=== PATIENT | female | born 1940 | race American Indian/Alaskan Native ===

== ENCOUNTER 2016-06-03 23:34 | Inpatient (IN) | payer MEDICARE, MEDICAID ==
--- NOTE | 2016-06-04 00:02 | Emergency Department Report ---
Chief Complaint: Vaginal Bleeding Stated Complaint: VAGINAL BLEEDING, LOWER ABDOMINAL PAIN Time Seen by Provider: 06/03/16 23:58 - HPI History of Present Illness: Patient states she started to have vaginal bleeding when she went to urinate 3 hours ago and an hour later started to have lower abdominal pain and lower back pain; denies fevers, recent injuries, N/V/D, dysuria, and hematuria - ROS Review of Systems: Negative except for those stated in HPI - Exam Vital Signs: Vital Signs 06/03/16 23:49 Temperature 98.6 F Pulse Rate 80 Respiratory 18 Rate Blood Pressure 145/77 O2 Sat by Pulse 99 Oximetry Physical Exam: Abdomen - soft, nondistended, TTP over lower abdomen MSE screening note: Focused history and physical exam performed. Due to findings the following was ordered: Labs, ua, patient to be seen in Main ED ED Disposition for MSE Condition: Stable
[2016-06-04 01:05] LABS: Bacteria,Urine 4+ /HPF (Negative); Bilirubin,Urine NEG (Negative); Blood,Urine LG (Negative); Ketones,Urine NEG (Negative); Leukocyte Esterase,Urine LG (Negative); Mucus,Urine 2+ /HPF; Nitrite,Urine NEG (Negative); Urobilinogen,Urine < 2.0 mg/dL (<2.0)
[2016-06-04 01:07] LABS: Basophils % (Auto) 0.4 % (0.0-1.8); Eosinophils % (Auto) 3.6 % (0.0-4.3); Hematocrit 35.1 % (30.3-42.9); Hemoglobin 11.6 gm/dl (10.1-14.3); Mean Corpuscular HGB Conc 33 % (30-34); Mean Corpuscular Hemoglobin 29 pg (28-32); Mean Corpuscular Volume 87 fl (79-97); Platelet Count 255 K/mm3 (140-440); Red Blood Count 4.06 M/mm3 (3.65-5.03); Red Cell Distribution Width 14.1 % (13.2-15.2); White Blood Count 7.3 K/mm3 (4.5-11.0)
[2016-06-04 01:09] LABS: Chloride 98.3 mmol/L (98-107); Potassium 4.1 mmol/L (3.6-5.0)
[2016-06-04 01:12] LABS: WBC,Urine > 182.0 /HPF (0.0-6.0)
[2016-06-04] MEDS ORDERED: TYLENOL PO ONE (06:57)
[2016-06-04] MEDS ORDERED: LEVAQUIN 750MG/150ML 150 ML IV ONE (10:46)
[2016-06-04] MEDS ORDERED: SUBLIMAZE IV ONE (10:46)
[2016-06-04] MEDS ORDERED: REGLAN IV ONE (10:46)
--- NOTE | 2016-06-04 10:57 | Emergency Department Report ---
HPI - General Chief Complaint: Vaginal Bleeding Time Seen by Provider: 06/04/16 10:36 - HPI HPI: Room 8 The patient is a 76-year-old female presenting with chief complaint of lower abdominal pain. Says she's had lower abdominal pain a little over 1 month. The patient states she saw her primary physician (Dr. Tang) [facility] for a CAT scan (04/24/2016). The patient states Dr. Tang wanted her to follow -up with an SHERIFF DEPUTY. Her primary physician started her on a seven-day course of antibiotics for UTI. The patient comes the emergency department today because her pain has worsened and she thought she noticed vaginal bleeding or hematuria. Patient also complains of pain in the middle and right back. Patient admits to nausea and vomiting. Patient denies fever or dysuria. The patient currently gives her pain a score of 8/10 Location: Lower abdomen Duration: Over 1 month Quality: Pain Severity: 8/10 Modifying factors: [see above] Context: [see above] Mode of transportation: [not driving] ED Past Medical Hx - Past Medical History Previous Medical History?: Yes Hx Hypertension: Yes Hx Congestive Heart Failure: Yes Hx Kidney Stones: Yes Additional medical history: poor historian, no meds brought with patient. had a angiogram done here - Surgical History Past Surgical History?: Yes Hx Appendectomy: Yes Additional Surgical History: x 1, tonsillectomy, cyst from ovary removed. Knee replacement - Family History Family history: no significant - Social History Smoking Status: Never Smoker Substance Use Type: None, Alcohol (occasional) - Medications Home Medications: Home Medications Medication Instructions Recorded Confirmed Last Taken Type Aspirin [Aspirin BABY CHEW TAB] 81 mg PO QDAY 06/04/16 06/04/16 Unknown History Benzonatate [Tessalon Perles] 100 mg PO Q8HR 06/04/16 06/04/16 Unknown History Erythromycin Base [Erythromycin] 500 mg PO BID 06/04/16 06/04/16 Unknown History Ibuprofen [Motrin] 600 mg PO Q8H PRN 06/04/16 06/04/16 Unknown History Perindopril Arg/Amlodipine Bes 1 each PO DAILY 06/04/16 06/04/16 Unknown History [Prestalia 14 mg-10 mg Tablet] Trazodone HCl [traZODone] 150 mg PO QHS 06/04/16 06/04/16 Unknown History ED Review of Systems ROS: Stated complaint: VAGINAL BLEEDING, LOWER ABDOMINAL PAIN Other details as noted in HPI Comment: All other systems reviewed and negative Constitutional: denies: chills, fever Eyes: denies: eye pain, eye discharge, vision change ENT: denies: ear pain, throat pain Respiratory: denies: cough, shortness of breath, wheezing Cardiovascular: denies: chest pain, palpitations Endocrine: no symptoms reported Gastrointestinal: abdominal pain, nausea, vomiting, diarrhea Genitourinary: abnormal menses Musculoskeletal: denies: back pain, joint swelling, arthralgia Skin: denies: rash, lesions Neurological: denies: headache, weakness, paresthesias Psychiatric: denies: anxiety, depression Hematological/Lymphatic: denies: easy bleeding, easy bruising Physical Exam - Physical Exam Vital Signs: Vital Signs 06/03/16 06/04/16 06/04/16 23:49 04:13 09:37 Temperature 98.6 F 97.7 F Pulse Rate 80 78 Respiratory 18 20 Rate Blood Pressure 145/77 175/88 Blood Pressure 174/91 [Right] O2 Sat by Pulse 99 99 Oximetry 06/04/16 10:00 Temperature 97.5 F L Pulse Rate 75 Respiratory 13 Rate Blood Pressure 159/83 Blood Pressure [Right] O2 Sat by Pulse 98 Oximetry Physical Exam: GENERAL: The patient is well-developed well-nourished female lying on stretcher appearing to be in moderate discomfort. [] HEENT: Normocephalic. Atraumatic. Extraocular motions are intact. Patient has moist mucous membranes. NECK: Supple. Trachea midline CHEST/LUNGS: Clear to auscultation. There is no respiratory distress noted. HEART/CARDIOVASCULAR: Regular. There is no tachycardia. There is no gallop rub or murmur. ABDOMEN: Abdomen is soft, with tenderness to palpation in the lower abdomen. There is no rebound or guarding. Patient has normal bowel sounds. There is no abdominal distention. SKIN: There is no rash. There is no edema. There is no diaphoresis. NEURO: The patient is awake, alert, and oriented. The patient is cooperative. The patient has normal speech MUSCULOSKELETAL: There is no evidence of acute injury. There is right CVA tenderness ED Course Vital Signs 06/03/16 06/04/16 06/04/16 23:49 04:13 09:37 Temperature 98.6 F 97.7 F Pulse Rate 80 78 Respiratory 18 20 Rate Blood Pressure 145/77 175/88 Blood Pressure 174/91 [Right] O2 Sat by Pulse 99 99 Oximetry 06/04/16 10:00 Temperature 97.5 F L Pulse Rate 75 Respiratory 13 Rate Blood Pressure 159/83 Blood Pressure [Right] O2 Sat by Pulse 98 Oximetry - Consultations Consultation #1: 06/04/16 11:01 SHERIFF DEPUTY paged- case discussed with Dr. Luque. Recommends pelvic ultrasound and he will see in consult 06/04/16 11:06 ED Medical Decision Making - Lab Data Result diagrams: 06/04/16 00:24 06/04/16 00:24 Laboratory Tests 06/04/16 06/04/16 06/04/16 00:24 00:24 00:24 WBC 7.3 RBC 4.06 Hgb 11.6 Hct 35.1 MCV 87 MCH 29 MCHC 33 RDW 14.1 Plt Count 255 Lymph % (Auto) 35.5 H [place] % (Auto) 12.3 H Eos % (Auto) 3.6 Baso % (Auto) 0.4 Lymph # 2.6 [place] # 0.9 H Eos # 0.3 Baso # 0.0 Seg Neutrophils % 48.2 Seg Neutrophils # 3.5 Sodium 143 Potassium 4.1 Chloride 98.3 Carbon Dioxide 31 H Anion Gap 18 BUN 13 Creatinine 1.3 H Estimated GFR 48 BUN/Creatinine Ratio 10.00 Glucose 104 H Calcium 9.0 Urine Color Urine Turbidity Urine pH Ur Specific [place] Urine Protein Urine Glucose (UA) Urine Ketones Urine Blood Urine Nitrite Urine Bilirubin Urine Urobilinogen Ur Leukocyte Esterase Urine WBC (Auto) Urine RBC (Auto) Urine Bacteria (Auto) Urine Mucus Blood Type O POSITIVE Antibody Screen Negative 06/04/16 Unknown WBC RBC Hgb Hct MCV MCH MCHC RDW Plt Count Lymph % (Auto) [place] % (Auto) Eos % (Auto) Baso % (Auto) Lymph # [place] # Eos # Baso # Seg Neutrophils % Seg Neutrophils # Sodium Potassium Chloride Carbon Dioxide Anion Gap BUN Creatinine Estimated GFR BUN/Creatinine Ratio Glucose Calcium Urine Color Red Urine Turbidity Turbid Urine pH 6.0 Ur Specific [place] 1.015 Urine Protein 100 mg/dl Urine Glucose (UA) Neg Urine Ketones Neg Urine Blood Lg Urine Nitrite Neg Urine Bilirubin Neg Urine Urobilinogen < 2.0 Ur Leukocyte Esterase Lg Urine WBC (Auto) > 182.0 H Urine RBC (Auto) 170.0 Urine Bacteria (Auto) 4+ Urine Mucus 2+ Blood Type Antibody Screen - Radiology Data Radiology results: report reviewed (CT abdomen and pelvis report from 04/24/2016 ) CT abdomen and pelvis from 04/24/2016-large uterine mass involving the lower uterine segment and cervical region. A neoplastic process cannot be excluded. - Differential Diagnosis uterine cancer, pyelonephritis, Critical care attestation.: If time is entered above; I have spent that time in minutes in the direct care of this critically ill patient, excluding procedure time. ED Disposition Clinical Impression: Pyelonephritis, Failure of outpatient treatment, Uterine mass Disposition: OP ADMITTED IP TO THIS HOSP Is pt being admited?: Yes Does the pt Need Aspirin: No Condition: Fair Referrals: TWYLA TANG MD [Primary Care Provider] - 3-5 Days Time of Disposition: 12:14 (hospitalist notified)
--- NOTE | 2016-06-04 11:59 | Admit Criteria Form ---
Admission Criteria Documentation: PYELONEPHRITIS, ACUTE Clinical Indications for Admission to Inpatient Care (Place 'X' for any and all applicable criteria): Admission is indicated for ANY ONE of the following 1,2,3,4,5 [X]I. Outpatient treatment has failed or is not feasible (eg, multidrug- resistant organism).5 [ ]II. beyond 24 weeks' gestation6 [ ]III. Hemodynamic instability [ ]IV. Immunocompromised state (eg, AIDS, diabetes, sickle cell disease) [X]V. Known renal or urologic abnormalities (eg, indwelling catheter, structural abnormalities, renal calculi, urinary stent, previous urologic surgery) [ ]. Condition that requires drainage procedure, including ANY ONE of the following: [ ]a) Urinary obstruction [ ]b) Pyelitis [ ]c) Pyonephrosis [ ]d) Renal or perinephric abscess [ ]e) Emphysematous pyelonephritis 7 [X]VII. Inpatient admission required rather than observation care (Also use Pyelonephritis, Acute: Observation Care Criteria as appropriate) because of ANY ONE of the following: [ ]a) High fever or infection requiring inpatient admission as indicated by ANY ONE of [id number] [ ]A. Documented bacteremia [ ]B. Temp>104.9 [id number] (oral) [ ]C. Temp>103.10F (oral) or <96.80F (rectal) that does not respond to all emergency treatment [X]b) Acute renal failure [X]c) Other significant finding or clinical condition judged not to be within the scope of observation care [ ]d) IV fluid to replace significant ongoing (eg, for over 24hrs) losses (> 3 L/m2 per day) [X]e) Other condition,treatment or monitoring requiring inpatient admission The original [facility] [employer] content created by [employer] has been revised. The portions of the content which have been revised are identified through the use of italic text or in bold, and [facility] has neither reviewed nor approved the modified material. All other unmodified content is copyright [email or web address]. Please see references footnoted in the original [facility] [employer] edition 2016 Admission Criteria Met: Yes
--- NOTE | 2016-06-04 14:09 | Ultrasound Report ---
Pelvic and transvaginal sonography: History: Lower abdominal pain, uterine mass. Findings: Uterus measures 16.5 x 6 x 7.6 cm. There is echogenic focus measuring 1.4 x 0.4 x 1 cm in diameter noted at the region of the endometrium probably a polyp. Endometrial thickness 21 mm. No fluid in the endometrium. Echogenic fluid within the cervix may represent fluid with debris or hemorrhagic fluid. Impression: Suspected polyp within the fundus of the uterus. Fluid/hemorrhage in the cervix. Right and left ovary not visualized. No mass of the adnexa.
[2016-06-04] MEDS ORDERED: ZOFRAN IV PRN (15:15)
[2016-06-04] MEDS ORDERED: TYLENOL PO PRN (15:15)
--- NOTE | 2016-06-04 15:22 | History and Physical Report ---
History of Present Illness Date of examination: 06/04/16 Date of admission: 06/04/16 12:47 Chief complaint: Abd. pains History of present illness: Patient is a 76-year-old woman with history of hypertension, CHF and kidney stones who presents with chronic progressive severe crampy nonradiating lower abdominal pains for over a month without any aggravating or relieving factors. She saw primary care provider Dr. Jesus Dumont, who ordered a CT of abdomen and pelvis on 04/24/2016 (report is in the chart) which showed a large uterine mass. She was scheduled to see INTERNAL MEDICINE NURSE this week. She has been treated for UTI on her urinalysis is still showing evidence of infection. She became concerned today due to copious amounts of vaginal bleeding over a cup full of this morning. The blood was bright red with clots; therefore, they decided come to emergency department at [facility] daughter Sharmaine is at bedside. Patient does have nausea without any intractable vomiting. She denies any chest pain, shortness breath, dysuria. Past History Past Medical History: other (as hpi) Past Surgical History: , total knee replacement (right), tonsillectomy , Other (right ovary cyst removed) Social history: full code. denies: smoking, alcohol abuse, prescription drug abuse, IV drug use Family history: no significant family history Medications and Allergies Allergies Allergy/AdvReac Type Severity Reaction Status Date / Time Penicillins Allergy Unknown Verified 02/20/13 09:57 Sulfa (Sulfonamide Allergy Unknown Verified 02/20/13 09:57 Antibiotics) Home Medications Medication Instructions Recorded Confirmed Last Taken Type Aspirin [Aspirin BABY CHEW TAB] 81 mg PO QDAY 06/04/16 06/04/16 Unknown History Benzonatate [Tessalon Perles] 100 mg PO Q8HR 06/04/16 06/04/16 Unknown History Erythromycin Base [Erythromycin] 500 mg PO BID 06/04/16 06/04/16 Unknown History Ibuprofen [Motrin] 600 mg PO Q8H PRN 06/04/16 06/04/16 Unknown History Perindopril Arg/Amlodipine Bes 1 each PO DAILY 06/04/16 06/04/16 Unknown History [Prestalia 14 mg-10 mg Tablet] Trazodone HCl [traZODone] 150 mg PO QHS 06/04/16 06/04/16 Unknown History Active Meds: Active Medications Acetaminophen (Tylenol) 650 mg PO Q6H PRN PRN Reason: Non Cardiac Pain or Temp>100.5 Levofloxacin/Dextrose (Levaquin 500mg/100ml) 100 mls @ 100 mls/hr IV Q24HR HORTENCIA PRN Reason: Protocol Sodium Chloride (Nacl 0.45% 1000 Ml) 1,000 mls @ 100 mls/hr IV DIRECT HORTENCIA Ondansetron HCl (Zofran) 4 mg IV Q4H PRN PRN Reason: Nausea And Vomiting Pantoprazole Sodium (Protonix) 40 mg PO QDAY HORTENCIA Review of Systems All systems: negative (as HPI and all other ROS reviewed and negative.) Exam - Physical Exam Narrative exam: GEN: WDWN, NAD, AWAKE, ALERT, ORIENTATED HEENT: NCAT, PERRL, EOMI, OP CLEAR NECK: SUPPLE, NO THYROMEGALY, NO JVD, NO LAD CVS: RRR, NORMAL S1S2 LUNGS/CHEST: CTA B, NORMAL CHEST EXPANSION B, GOOD AIR ENTRY B ABD: SOFT, NONDISTENDED, DIFFUSE TENDERNESS, GBS, NO REBOUND OR GUARDING EXT/SKIN: NO SIGNIFICANT EDEMA OR RASH MSK: FROM X 4 EXTREMITIES NEURO: CN 2-12 GROSSLY INTACT, NO FOCAL DEFICITS PSY: CALM - Constitutional Vitals: Temp Pulse Resp BP Pulse Ox 98.3 F 80 18 170/80 98 06/04/16 14:28 06/04/16 14:28 06/04/16 14:28 06/04/16 14:28 06/04/16 14:28 Results - Labs CBC & Chem 7: 06/04/16 00:24 06/04/16 00:24 Labs: Abnormal lab results 06/04/16 Range/Units Unknown Urine WBC (Auto) > 182.0 H (0.0-6.0) /HPF - Imaging and Cardiology Venous US: other (transvaginal ultrasound) Assessment and Plan Patient is a 76-year-old woman with history of hypertension, CHF and kidney stones who presents with chronic progressive severe crampy nonradiating lower abdominal pains for over a month without any aggravating or relieving factors. She saw primary care provider Dr. Jesus Dumont, who ordered a CT of abdomen and pelvis on 04/24/2016 (report is in the chart) which showed a large uterine mass. She was scheduled to see INTERNAL MEDICINE NURSE this week. She has been treated for UTI on her urinalysis is still showing evidence of infection. She became concerned today due to copious amounts of vaginal bleeding over a cup full of this morning. The blood was bright red with clots; therefore, they decided come to emergency department at [facility] daughter Sharmaine is at bedside. Patient does have nausea without any intractable vomiting. She denies any chest pain, shortness breath, dysuria. 1. Uterine mass with abnormal vaginal bleeding: INTERNAL MEDICINE NURSE to follow and manage 2. Acute kidney injury, vasomotor nephropathy: Treat with IV fluids, repeat BMP a.m. 3. Accelerated hypertension: Restart home meds 4. UTI: Urine culture and treat with IV Levaquin because of allergic to penicillin 5. DVT prophylaxis: SCDs only due to the bleeding Full code Disposition: Inpatient care
--- NOTE | 2016-06-04 16:29 | Consultation ---
History of Present Illness Consult date: 06/04/16 Requesting physician: MUMTAZ LALA Reason for consult: other (Postmenopausal bleeding) History of present illness: Patient is a 76-year-old BF LMP 30 years ago spontaneously, with a history of hypertension, CHF and kidney stones who presented to [facility] ER with chronic progressive severe crampy non-radiating lower abdominal pains for over a month without any aggravating or relieving factors. She saw her primary care provider Dr. Jesus Dumont, who ordered a CT of abdomen and pelvis on 04/24/2016 ( report is in the chart) which showed a large uterine mass. She was scheduled to see an INSIDE SALES ACCOUNT MANAGER . She has been treated for UTI, but her urinalysis is still showing evidence of infection. She became concerned today due to copious amounts of vaginal bleeding over a cup full of this morning. The blood was bright red with clots; therefore, they decided come to emergency department at [facility], daughter Sharmaine is at her bedside. Patient does have nausea without any intractable vomiting. She denies any chest pain, shortness breath, dysuria. Her last Pap was done over 10 years ago. 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 (Right ovarian cystectomy), tonsillectomy, section, other (Total right knee replacement) Social history: no significant social history, Medications and Allergies Allergies Allergy/AdvReac Type Severity Reaction Status Date / Time Penicillins Allergy Unknown Verified 02/20/13 09:57 Sulfa (Sulfonamide Allergy Unknown Verified 02/20/13 09:57 Antibiotics) Home Medications Medication Instructions Recorded Confirmed Last Taken Type Aspirin [Aspirin BABY CHEW TAB] 81 mg PO QDAY 06/04/16 06/04/16 Unknown History Benzonatate [Tessalon Perles] 100 mg PO Q8HR 06/04/16 06/04/16 Unknown History Erythromycin Base [Erythromycin] 500 mg PO BID 06/04/16 06/04/16 Unknown History Ibuprofen [Motrin] 600 mg PO Q8H PRN 06/04/16 06/04/16 Unknown History Perindopril Arg/Amlodipine Bes 1 each PO DAILY 06/04/16 06/04/16 Unknown History [Prestalia 14 mg-10 mg Tablet] Trazodone HCl [traZODone] 150 mg PO QHS 06/04/16 06/04/16 Unknown History Active Meds: Active Medications Acetaminophen (Tylenol) 650 mg PO Q6H PRN PRN Reason: Non Cardiac Pain or Temp>100.5 Sodium Chloride (Nacl 0.45% 1000 Ml) 1,000 mls @ 100 mls/hr IV DIRECT HORTENCIA Levofloxacin/Dextrose (Levaquin 750mg/150ml) 150 mls @ 150 mls/hr IV Q48H HORTENCIA PRN Reason: Protocol Miscellaneous Medication (Perindopril Arg/Amlodipine Bes [Prestalia 14 Mg-10 Mg Tablet]) 1 each PO DAILY HORTENCIA Ondansetron HCl (Zofran) 4 mg IV Q4H PRN PRN Reason: Nausea And Vomiting Pantoprazole Sodium (Protonix) 40 mg PO QDAY HORTENCIA Trazodone HCl (Desyrel) 150 mg PO QHS [facility] Review of Systems All systems: negative - Vital Signs Vital signs: Vital Signs Temp Pulse Resp BP Pulse Ox 98.6 F 80 18 145/77 99 06/03/16 23:49 06/03/16 23:49 06/03/16 23:49 06/03/16 23:49 06/03/16 23:49 Temp Pulse Resp BP Pulse Ox 98.3 F 80 18 170/80 98 06/04/16 14:28 06/04/16 14:28 06/04/16 14:28 06/04/16 14:28 06/04/16 14:28 Results Result Diagrams: 06/04/16 00:24 06/04/16 00:24 Abnormal lab results 06/04/16 Range/Units Unknown Urine WBC (Auto) > 182.0 H (0.0-6.0) /HPF All other labs normal. Ultrasound: report reviewed Assessment and Plan - Patient Problems (1) PMB (postmenopausal bleeding) Diagnosis Date: 06/04/16 Current Visit: Yes Status: Acute Plan to address problem: A: Post menopausal bleeding - most likely due to a large uterine/cervical mass Chronic hypertension P: Will schedule a D&C with cervical biopsies for tomorrow - to determine uterine/cervical source of bleeding NPO p midnight
[2016-06-04] MEDS ORDERED: NACL 0.45% 1000 ML 1,000 ML IV SCH (17:00)
[2016-06-04] MEDS ORDERED: GARAMYCIN 160 MG in NACL 0.9% 100 ML IV SCH (17:30)
[2016-06-04] MEDS ORDERED: LACTATED RINGERS 1,000 ML IV SCH (18:00)
[2016-06-04] MEDS ORDERED: CLEOCIN 600 MG/50 mL 50 ML IV NR (18:00)
[2016-06-04] MEDS: TORADOL IV SCH (18:40)
[2016-06-04] MEDS ORDERED: NON-FORMULARY (Trazodone Hcl [Trazodone] 150 MG) PO SCH (22:00)
[2016-06-04] MEDS ORDERED: DESYREL PO SCH (22:00)
[2016-06-04] MEDS: DESYREL PO SCH (23:43)
[2016-06-04] MEDS: AMLODIPINE PO SCH (23:43)
[2016-06-04] MEDS: PERINDOPRIL PO SCH (23:43)
[2016-06-05] MEDS: TORADOL IV SCH ×3 (03:03→17:30)
[2016-06-05] MEDS ORDERED: ZOFRAN ONE (05:47)
[2016-06-05] MEDS ORDERED: SUBLIMAZE ONE (05:47)
[2016-06-05] MEDS ORDERED: DIPRIVAN 10 MG/ML IV ONE (05:47)
[2016-06-05] MEDS ORDERED: DECADRON ONE (05:47)
[2016-06-05] MEDS ORDERED: XYLOCAINE MPF 2% ONE (05:47)
[2016-06-05] MEDS ORDERED: PEPCID IV ONE ×2 (06:37→07:00)
[2016-06-05] MEDS ORDERED: NACL 0.9% 1000 ML 1,000 ML ONE (06:37)
[2016-06-05] MEDS ORDERED: ePHEDrine SULFATE ONE (07:50)
[2016-06-05] MEDS ORDERED: LEVAQUIN 500MG/100ML 100 ML IV SCH (10:00)
[2016-06-05] MEDS ORDERED: PNEUMOVAX 23 IM ONE (12:00)
--- NOTE | 2016-06-05 14:11 | Operative Report ---
Operative Report Operative Report: DATE: 06/05/16 (Note this is a late note due to computer system down) PREOPERATIVE DIAGNOSIS: Postmenopausal bleeding, Suspected cervical mass or polyp POSTOP DIAGNOSIS: Stenotic OS, Postmenopausal bleeding, Hematometria, no cervical mass or polyp NAME OF PROCEDURE: Dilation of stenotic OS, Evacuation of 200 mls of Hematometria, D&C SURGEON: BUCKY GHOSH MD CAMP HOUSEKEEPER: None ANESTHESIA: LMA EBL: None ENDOMETRIAL FLUID: 200 mils of dark chocolate-colored fluid PATHOLOGY SPECIMEN: Endometrial curretings, Culture of Hematometria URINE OUTPUT: 50 mL prior to procedure FINDINGS: Cervix was soft and ballooning with no obvious mass or lesion, OS noted to be Stenotic, uterus measures 10 cm, there was chocolate-colored fluid noted on dilation of cervical OS DESCRIPTION OF PROCEDURE: Patient taken to the operating room where she was prepped and draped in sterile fashion placed in dorsolithotomy position. A speculum was placed in the vagina and Allis forcep was used to grab the anterior lip of the uterus. Uterine sound was advanced into the cervical os after minimal resistance, access was gained with immediate effluence of dark colored fluid. Uterus was then sounded to 11 cm. About 200 mls of this fluid was suctioned. Using a sharp curet, all 4 quadrants were sampled and sent to pathology. All instruments were then withdrawn to the patient's vagina, She tolerated the procedure well and instrument counts were correct 2 she is transferred to PACU in stable condition thank you
[2016-06-05] MEDS: PERINDOPRIL PO SCH (14:17)
[2016-06-05] MEDS: PROTONIX PO SCH (14:17)
[2016-06-05] MEDS: AMLODIPINE PO SCH (14:17)
[2016-06-05] MEDS: NACL 0.9% 1000 ML 1,000 ML IV SCH (16:10)
[2016-06-05] MEDS ORDERED: CHLORASEPTIC MM PRN (18:34)
--- NOTE | 2016-06-05 19:34 | Progress Note ---
Assessment and Plan Assessment and plan: UTI SUDHIR Postmenopausal bleeding History Interval history: s/p D&C today c/o dysphagia, sore throat Hospitalist Physical - Constitutional Vitals: Temp Pulse Resp BP Pulse Ox 98.1 F 92 H 18 98/54 100 06/05/16 16:58 06/05/16 16:58 06/05/16 16:58 06/05/16 16:58 06/05/16 06:30 Results - Labs CBC & Chem 7: 06/04/16 00:24 06/04/16 00:24 Labs: Laboratory Last Values WBC 7.3 K/mm3 (4.5-11.0) 06/04/16 00:24 RBC 4.06 M/mm3 (3.65-5.03) 06/04/16 00:24 Hgb 11.6 gm/dl (10.1-14.3) 06/04/16 00:24 Hct 35.1 % (30.3-42.9) 06/04/16 00:24 MCV 87 fl (79-97) 06/04/16 00:24 MCH 29 pg (28-32) 06/04/16 00:24 MCHC 33 % (30-34) 06/04/16 00:24 RDW 14.1 % (13.2-15.2) 06/04/16 00:24 Plt Count 255 K/mm3 (140-440) 06/04/16 00:24 Lymph % (Auto) 35.5 % (13.4-35.0) H 06/04/16 00:24 [place] % (Auto) 12.3 % (0.0-7.3) H 06/04/16 00:24 Eos % (Auto) 3.6 % (0.0-4.3) 06/04/16 00:24 Baso % (Auto) 0.4 % (0.0-1.8) 06/04/16 00:24 Lymph # 2.6 K/mm3 (1.2-5.4) 06/04/16 00:24 [place] # 0.9 K/mm3 (0.0-0.8) H 06/04/16 00:24 Eos # 0.3 K/mm3 (0.0-0.4) 06/04/16 00:24 Baso # 0.0 K/mm3 (0.0-0.1) 06/04/16 00:24 Seg Neutrophils % 48.2 % (40.0-70.0) 06/04/16 00:24 Seg Neutrophils # 3.5 K/mm3 (1.8-7.7) 06/04/16 00:24 Sodium 143 mmol/L (137-145) 06/04/16 00:24 Potassium 4.1 mmol/L (3.6-5.0) 06/04/16 00:24 Chloride 98.3 mmol/L (98-107) 06/04/16 00:24 Carbon Dioxide 31 mmol/L (22-30) H 06/04/16 00:24 Anion Gap 18 mmol/L 06/04/16 00:24 BUN 13 mg/dL (7-17) 06/04/16 00:24 Creatinine 1.3 mg/dL (0.7-1.2) H 06/04/16 00:24 Estimated GFR 48 ml/min 06/04/16 00:24 BUN/Creatinine Ratio 10.00 % 06/04/16 00:24 Glucose 104 mg/dL (65-100) H 06/04/16 00:24 Calcium 9.0 mg/dL (8.4-10.2) 06/04/16 00:24 Urine Color Red (Yellow) 06/04/16 Unknown Urine Turbidity Turbid (Clear) 06/04/16 Unknown Urine pH 6.0 (5.0-7.0) 06/04/16 Unknown Ur Specific [place] 1.015 (1.003-1.030) 06/04/16 Unknown Urine Protein 100 mg/dl mg/dL (Negative) 06/04/16 Unknown Urine Glucose (UA) Neg mg/dL (Negative) 06/04/16 Unknown Urine Ketones Neg mg/dL (Negative) 06/04/16 Unknown Urine Blood Lg (Negative) 06/04/16 Unknown Urine Nitrite Neg (Negative) 06/04/16 Unknown Urine Bilirubin Neg (Negative) 06/04/16 Unknown Urine Urobilinogen < 2.0 mg/dL (<2.0) 06/04/16 Unknown Ur Leukocyte Esterase Lg (Negative) 06/04/16 Unknown Urine WBC (Auto) > 182.0 /HPF (0.0-6.0) H 06/04/16 Unknown Urine RBC (Auto) 170.0 /HPF (0.0-6.0) 06/04/16 Unknown Urine Bacteria (Auto) 4+ /HPF (Negative) 06/04/16 Unknown Urine Mucus 2+ /HPF 06/04/16 Unknown Blood Type O POSITIVE 06/04/16 00:24 Antibody Screen Negative 06/04/16 00:24
[2016-06-05] MEDS: DESYREL PO SCH (21:40)
[2016-06-05] MEDS ORDERED: DESYREL PO SCH (22:00)
[2016-06-06] MEDS: TORADOL IV SCH ×3 (02:07→19:04)
[2016-06-06 08:02] LABS: BUN/Creatinine Ratio 12.3; Chloride 101.8 mmol/L (98-107); Potassium 3.9 mmol/L (3.6-5.0)
[2016-06-06] MEDS ORDERED: LEVAQUIN 750MG/150ML 150 ML IV SCH (10:00)
[2016-06-06] MEDS: PERINDOPRIL PO SCH (11:10)
[2016-06-06] MEDS: AMLODIPINE PO SCH (11:10)
[2016-06-06] MEDS: PROTONIX PO SCH (11:10)
--- NOTE | 2016-06-06 19:26 | Progress Note ---
Assessment and Plan Assessment and plan: UTI SUDHIR Postmenopausal bleeding History Interval history: doing well, feeling better, no specific complaints except for mild dysphagia Hospitalist Physical - Constitutional Vitals: Temp Pulse Resp BP Pulse Ox 98.6 F 81 20 121/56 100 06/06/16 15:00 06/06/16 15:00 06/06/16 15:00 06/06/16 15:00 06/06/16 08:20 Results - Labs CBC & Chem 7: 06/04/16 00:24 06/06/16 07:00 Labs: Laboratory Last Values WBC 7.3 K/mm3 (4.5-11.0) 06/04/16 00:24 RBC 4.06 M/mm3 (3.65-5.03) 06/04/16 00:24 Hgb 11.6 gm/dl (10.1-14.3) 06/04/16 00:24 Hct 35.1 % (30.3-42.9) 06/04/16 00:24 MCV 87 fl (79-97) 06/04/16 00:24 MCH 29 pg (28-32) 06/04/16 00:24 MCHC 33 % (30-34) 06/04/16 00:24 RDW 14.1 % (13.2-15.2) 06/04/16 00:24 Plt Count 255 K/mm3 (140-440) 06/04/16 00:24 Lymph % (Auto) 35.5 % (13.4-35.0) H 06/04/16 00:24 Trigg % (Auto) 12.3 % (0.0-7.3) H 06/04/16 00:24 Eos % (Auto) 3.6 % (0.0-4.3) 06/04/16 00:24 Baso % (Auto) 0.4 % (0.0-1.8) 06/04/16 00:24 Lymph # 2.6 K/mm3 (1.2-5.4) 06/04/16 00:24 Trigg # 0.9 K/mm3 (0.0-0.8) H 06/04/16 00:24 Eos # 0.3 K/mm3 (0.0-0.4) 06/04/16 00:24 Baso # 0.0 K/mm3 (0.0-0.1) 06/04/16 00:24 Seg Neutrophils % 48.2 % (40.0-70.0) 06/04/16 00:24 Seg Neutrophils # 3.5 K/mm3 (1.8-7.7) 06/04/16 00:24 Sodium 141 mmol/L (137-145) 06/06/16 07:00 Potassium 3.9 mmol/L (3.6-5.0) 06/06/16 07:00 Chloride 101.8 mmol/L (98-107) 06/06/16 07:00 Carbon Dioxide 27 mmol/L (22-30) 06/06/16 07:00 Anion Gap 16 mmol/L 06/06/16 07:00 BUN 16 mg/dL (7-17) 06/06/16 07:00 Creatinine 1.3 mg/dL (0.7-1.2) H 06/06/16 07:00 Estimated GFR 48 ml/min 06/06/16 07:00 BUN/Creatinine Ratio 12.30 % 06/06/16 07:00 Glucose 116 mg/dL (65-100) H 06/06/16 07:00 Calcium 8.0 mg/dL (8.4-10.2) L 06/06/16 07:00 Urine Color Red (Yellow) 06/04/16 Unknown Urine Turbidity Turbid (Clear) 06/04/16 Unknown Urine pH 6.0 (5.0-7.0) 06/04/16 Unknown Ur Specific [place] 1.015 (1.003-1.030) 06/04/16 Unknown Urine Protein 100 mg/dl mg/dL (Negative) 06/04/16 Unknown Urine Glucose (UA) Neg mg/dL (Negative) 06/04/16 Unknown Urine Ketones Neg mg/dL (Negative) 06/04/16 Unknown Urine Blood Lg (Negative) 06/04/16 Unknown Urine Nitrite Neg (Negative) 06/04/16 Unknown Urine Bilirubin Neg (Negative) 06/04/16 Unknown Urine Urobilinogen < 2.0 mg/dL (<2.0) 06/04/16 Unknown Ur Leukocyte Esterase Lg (Negative) 06/04/16 Unknown Urine WBC (Auto) > 182.0 /HPF (0.0-6.0) H 06/04/16 Unknown Urine RBC (Auto) 170.0 /HPF (0.0-6.0) 06/04/16 Unknown Urine Bacteria (Auto) 4+ /HPF (Negative) 06/04/16 Unknown Urine Mucus 2+ /HPF 06/04/16 Unknown Blood Type O POSITIVE 06/04/16 00:24 Antibody Screen Negative 06/04/16 00:24
[2016-06-06] MEDS: DESYREL PO SCH (21:20)
--- NOTE | 2016-06-06 23:57 | Progress Note ---
Assessment and Plan POD # 1 s/p D&C for PMB -Doing well No ABD pain or VB at this time P: -Await Biopsy result -Can be Discharged home from [employer] Press [employer] Operator standpoint -Will need to f/u with PCP (Dr Jesus Dumont) who has arranged an outside ASSISTANT PROFESSOR OF RELIGION for her -Please provide copy of her biopsy report if available -Pls call with questions, Thx - Patient Problems (1) PMB (postmenopausal bleeding) Onset Date: 06/04/16 Current Visit: Yes Status: Acute Subjective - Subjective Date of service: 06/06/16 Principal diagnosis: PMB Objective - Vital Signs Latest vital signs: Vital Signs Temp Pulse Pulse Resp BP BP Pulse Ox 06/06/16 15:00 98.6 F 81 20 121/56 06/06/16 08:20 97.6 F 75 18 120/59 100 06/06/16 05:00 97.0 F L 80 20 112/58 96 06/06/16 00:00 97.6 F 83 20 107/60 95 Intake and Output 06/06/16 06/06/16 06/07/16 14:59 22:59 06:59 Intake Total 1860 Balance 1860 Intake: IV 900 Levaquin 750Mg/150Ml 150 150 ml @ 150 mls/hr IV Q48H [facility] Rx#:[id number] NaCl 0.9% 1000 ml 1,000 750 ml @ 75 mls/hr IV DIRECT [facility]IA Rx#:[id number] Oral 960 Other: Total, Intake Amount 480 Voiding Method Toilet Toilet # Voids 1 Void 1 - Exam Abdomen: Absent: tenderness, guarding, rigidity - Labs Labs: Abnormal lab results 06/06/16 Range/Units 07:00 Creatinine 1.3 H (0.7-1.2) mg/dL Glucose 116 H (65-100) mg/dL Calcium 8.0 L (8.4-10.2) mg/dL
[2016-06-07] MEDS: TORADOL IV SCH (03:00)
[2016-06-07] MEDS: NACL 0.9% 1000 ML 1,000 ML IV SCH (03:00)
[2016-06-07 09:11] LABS: Hemoglobin 9.5 gm/dl (10.1-14.3)
[2016-06-07] MEDS ORDERED: LEVAQUIN PO SCH (10:00)
[2016-06-07] MEDS: PROTONIX PO SCH (10:19)
[2016-06-07] MEDS: AMLODIPINE PO SCH (10:21)
[2016-06-07] MEDS: PERINDOPRIL PO SCH (10:21)
--- NOTE | 2016-06-07 11:48 | Discharge Summary ---
Providers - Providers Date of Admission: 06/04/16 12:47 Date of discharge: 06/07/16 Attending physician: MARTY CUEVAS CONSULTS: OB-OPHTHALMIC PHOTOGRAPHER Primary care physician: TWYLA TANG Hospitalization Reason for admission: abdominal pain, vaginal bleeding Condition: Stable Pertinent studies: Pelvis and Transvaginal US Procedures: D&C Disposition: DISCHARGED TO HOME OR SELFCARE Time spent for discharge: 35 min Core Measure Documentation - Palliative Care Palliative Care/ Comfort Measures: Not Applicable - Core Measures Any of the following diagnoses?: none Exam - Physical Exam Narrative exam: Patient seen and examined: - Constitutional Vitals: Temp Pulse Resp BP Pulse Ox 98.5 F 66 18 113/56 98 06/07/16 08:15 06/07/16 08:15 06/07/16 08:15 06/07/16 08:15 06/07/16 08:15 General appearance: Present: no acute distress, obese - EENT Eyes: Present: PERRL, EOM intact - Neck Neck: Present: supple, normal ROM. Absent: masses or JVD - Respiratory Respiratory effort: normal Respiratory: bilateral: CTA, negative: rales, rhonchi, wheezing - Cardiovascular Rhythm: regular Heart Sounds: Present: S1 & S2. Absent: systolic murmur - Extremities Extremities: no ischemia - Abdominal General gastrointestinal: Present: soft, non-tender, non-distended, normal bowel sounds - Musculoskeletal Musculoskeletal: strength equal bilaterally - Psychiatric Psychiatric: cooperative - Neurologic Neurologic: CNII-XII intact, no focal deficits Plan Activity: advance as tolerated Diet: low cholesterol, low salt Additional Instructions: Follow-up with Dr. Luis F Luque, OB-OPHTHALMIC PHOTOGRAPHER; call [phone] for appointment Follow up with: TWYLA TANG MD [Primary Care Provider] - 3-5 Days Prescriptions: Benzonatate [Tessalon Perles] 100 mg PO Q8HR #20 capsule Levofloxacin [Levaquin TAB] 250 mg PO DAILY #3 tablet
--- NOTE | 2016-06-07 12:44 | Event Note ---
Date: 06/07/16 Discussed preliminary findings of endometrial biopsy with pt showing Grade 3 endometrioid adenocarcinoma. I told her that she will need a [employer]ing Machine [employer]er Oncologist, and I suggested Dr Laron Mello @ [facility]. The nurse will provide his office telephone number. She can follow up with him WENDY upon discharge from [facility]. I also discussed the results with her daughter by phone. All questions answered to their satisfaction.
[2016-06-07] MEDS ORDERED: PNEUMOVAX 23 IM ONE (14:02)
[2016-06-07 15:13] VITALS: BP 153/72
== END 2016-06-07 17:40 | disposition home or self-care (01) | DRG 744 ==
LOC: ED 23:34 → 3A 06-04 12:47
PROVIDERS: ADMIT Internal Medicine; ATTEND Internal Medicine
PROC: 0UDB7ZX Extraction of Endometrium, Via Natural or Artificial Opening, Diagnostic (ICD-10-PCS; principal; 2016-06-05)
DX: C54.1 Malignant neoplasm of endometrium (principal); N17.0 Acute kidney failure with tubular necrosis; N39.0 Urinary tract infection, site not specified; N93.9 Abnormal uterine and vaginal bleeding, unspecified; N95.0 Postmenopausal bleeding; I11.0 Hypertensive heart disease with heart failure; I50.9 Heart failure, unspecified; Z90.49 Acquired absence of other specified parts of digestive tract; Z98.890 Other specified postprocedural states; Z79.82 Long term (current) use of aspirin; Z96.651 Presence of right artificial knee joint; Z88.2 Allergy status to sulfonamides; Z88.0 Allergy status to penicillin
CPT/HCPCS: 36415; 76830; 76856; 80048; 81001; 85014; 85018; 85025; 86850; 86900; 86901; 87075; 87086; 87116; 88305; 88342; 90471; 90732; 96365; 96366; 96375; G0009; J1100; J1580; J1885; J1956; J2405; J2704; J2765; J3010; J7030

== ENCOUNTER 2016-10-04 12:38 | Outpatient (CLI) | payer MEDICARE ==
--- NOTE | 2016-10-04 16:21 | Cat Scan Report ---
CT ABDOMEN AND PELVIS WITHOUT CONTRAST INDICATION: Endometrial cancer, nausea. COMPARISON: 04/24/2016 FINDINGS: Abdomen and pelvis CT performed following oral contrast only. LUNG BASES: Stable heart size and few coronary calcifications. Slight bibasilar atelectasis and minimal extreme right lung base pleural effusion is new. Multiple retrocrural lymphadenopathy is also new, measuring approximately 2.2 cm on the right, axial image 55, series 2 an approximately 1.8 cm on the left, axial image 39. Nonspecific distal esophageal wall prominence/thickening, not excluded for gastroesophageal reflux and/or hiatal hernia, amongst others. ABDOMEN: Please note that sensitivity to detect small visceral lesions is limited due to the absence of intravenous contrast. Grossly unremarkable unenhanced liver, spleen, gallbladder, pancreas, adrenals, nonaneurysmal abdominal aorta and IVC. However, extensive retroperitoneal adenopathy now silhouettes the aorta and the IVC with an index AP aggregate measurement including the above structures approximately 4 cm AP x 7.1 cm transverse as on axial image 120, series 2. It also extends along the iliac chains with mild diffuse retroperitoneal stranding also now evident. Approximately 6.8 x 5.1 x 5.5 cm hypodense left lower retroperitoneal mass measuring 10 Hounsfield units also noted on axial image 168, series 2, amongst others. Nonhydronephrotic kidneys with few small bilateral calcifications, some cortical while few others not entirely excluded for calculi. Opacified GI tract nonobstructive. Mild to moderate ascending and transverse colon stool/possible constipation. No significant ascites. PELVIS: Diffuse presacral fat stranding is new. Multiple pelvic phleboliths. Interval removal of the uterus and the large cervical region mass. Non-opacified urinary bladder suboptimally distended and assessed, though with mild surrounding fat stranding. Few postsurgical changes along the anterior wall inferiorly are new as on axial image 278. Stable bilateral inguinal region fat-containing hernias measuring up to 3 cm. Bilateral inguinal chain lymph nodes noted, measuring up to 2.6 cm on the right and 3.3 cm on the left, axial image 260, series 2. Few small right inguinal lymph nodes also seen. Mild lumbar levoscoliosis apex about L1. Multilevel spinal degenerative changes, including spurring and lower lumbar facet arthropathy also seen. CONCLUSION: 1. Extensive retroperitoneal metastatic lymphadenopathy/masses noted in this patient with interval hysterectomy and cervical region mass removal, as described. Nonspecific mild perivesicular fat stranding now noted. 2. Trace right pleural effusion and minimal bibasilar atelectasis is new. 3. Few other incidental findings, including small bilateral renal calcifications and possible constipation, amongst others, as above. Please correlate. Thank you for the opportunity to participate in this patient's care.
== END 2016-10-04 12:39 | disposition home or self-care (01) ==
LOC: CT 12:38
PROVIDERS: ATTEND Obstetrics & Gynecology Gynecologic Oncology
DX: C54.1 Malignant neoplasm of endometrium (principal); I25.10 Atherosclerotic heart disease of native coronary artery without angina pectoris; J98.11 Atelectasis; K40.90 Unilateral inguinal hernia, without obstruction or gangrene, not specified as recurrent; J90 Pleural effusion, not elsewhere classified; R59.1 Generalized enlarged lymph nodes; N28.89 Other specified disorders of kidney and ureter; I87.8 Other specified disorders of veins; N32.89 Other specified disorders of bladder; M41.86 Other forms of scoliosis, lumbar region; M47.896 Other spondylosis, lumbar region; R11.0 Nausea; M12.88 Other specific arthropathies, not elsewhere classified, other specified site; Z90.710 Acquired absence of both cervix and uterus
CPT/HCPCS: 36415; 74176; 82565; 84520

== ENCOUNTER 2017-10-09 10:43 | Outpatient (CLI) | payer MEDICARE ==
--- NOTE | 2017-10-15 13:04 | Vascular Lab Report ---
Right Lower Extremity Venous Duplex Study: Reason for Exam: Pain and swelling of the right lower extremity. Comments on the Right: All veins visualized are freely compressible without evidence of internal echogenicity. Flow is spontaneous and phasic throughout. No evidence of acute or chronic thrombus is seen in any of the vessels visualized. A soft tissue change in the right knee area is consistent with a Hayes's cyst. Comments on the Left: A limited duplex study was done of the proximal veins of the left lower extremity. All veins visualized are freely compressible without evidence of internal echogenicity. Flow is spontaneous and phasic throughout. No evidence of acute or chronic thrombus is seen in any of the vessels visualized. Impression: No evidence of acute or chronic deep venous thrombosis in the right lower extremity. A soft tissue change in the right knee area is consistent with a Hayes's cyst.
== END 2017-10-09 10:44 | disposition home or self-care (01) ==
LOC: VAS 10:43
PROVIDERS: ATTEND Internal Medicine
DX: M79.604 Pain in right leg (principal); M79.89 Other specified soft tissue disorders; I11.0 Hypertensive heart disease with heart failure; I50.9 Heart failure, unspecified; Z90.49 Acquired absence of other specified parts of digestive tract

== ENCOUNTER 2018-01-14 09:42 | Outpatient (CLI) | payer MEDICARE ==
--- NOTE | 2018-01-14 16:09 | Cat Scan Report ---
FINAL REPORT EXAM: CT ABDOMEN PELVIS WO CON HISTORY: Neoplasm of unspecified behavior of other genitourinary organ COMPARISON: None. TECHNIQUE: Multiple contiguous axial images were obtained from the lung bases to the pubic symphysis without administration of IV contrast. Reformatted sagittal and coronal images were available for review. FINDINGS: Lung bases: Normal. Visualized heart and mediastinum: Normal noncontrast appearance. Liver: Normal noncontrast appearance. Spleen: Normal noncontrast appearance. Pancreas: Normal noncontrast appearance. Gallbladder and Biliary Tree: Several calcified gallstones. No pericholecystic fluid or gallbladder wall thickening. Adrenal glands: Normal. Kidneys: Bilateral renal calculi that are nonobstructive. Calcifications of the inferior pole of the right kidney may be around a cyst. No hydronephrosis. Bladder: Normal. Pelvic organs: The uterus is surgically absent. Bowel: No focal wall thickening. No evidence of obstruction. Oral contrast advances to descending diverticulosis of the sigmoid colon without evidence of diverticulitis. Colon Peritoneum: There is a nodular mass anterior to the left psoas muscle, lateral to the aortic bifurcation, and medial to the inferior pole of the left kidney that measures approximately 4.1 x 2.4 x 3.2 centimeters (series 2, image 86). There is no free air or free fluid. Vasculature: Abdominal aorta is normal in caliber without evidence of aneurysm. Scattered atherosclerotic calcifications. Normal noncontrast appearance of the portal venous system and the inferior vena cava. Bones and soft tissues: No suspicious osseous lesions. No acute fracture or dislocation. Degenerative changes of the spine. Small, fat containing bilateral inguinal hernias. Midline abdominal scar. IMPRESSION: 1. Nodular mass anterior to the left psoas muscle, lateral to the aortic bifurcation, and medial to the inferior pole of the left kidney that measures approximately 4.1 x 2.4 x 3.2 centimeters. Differential diagnosis includes primary malignancy versus metastatic disease. 2. Nonobstructive bilateral renal calculi. Calcifications of the inferior pole of the right kidney may be around a cyst, evaluation is limited due to lack of IV contrast. No hydronephrosis. 3. Cholelithiasis without evidence for cholecystitis. 4. Diverticulosis of the sigmoid colon without evidence of diverticulitis.
== END 2018-01-14 09:43 | disposition home or self-care (01) ==
LOC: CT 09:42
PROVIDERS: ATTEND Obstetrics & Gynecology Gynecologic Oncology
DX: K57.30 Diverticulosis of large intestine without perforation or abscess without bleeding (principal); K80.20 Calculus of gallbladder without cholecystitis without obstruction; N20.0 Calculus of kidney; D49.59 Neoplasm of unspecified behavior of other genitourinary organ; I11.0 Hypertensive heart disease with heart failure; I50.30 Unspecified diastolic (congestive) heart failure; Z85.42 Personal history of malignant neoplasm of other parts of uterus; Z90.49 Acquired absence of other specified parts of digestive tract
CPT/HCPCS: 36415; 74176; 82565; 84520